=== PATIENT | female | born 1990 | race Caucasian/White ===

== ENCOUNTER → 2018-03-05 | Outpatient (CLI) | payer OTHER ==
[~2018-03-05] MED LIST: CEPH500C3 PO; FLAG500T PO; GLIP5 PO; GLUCTAB PO; LISI-360 PO; ZOFR4TAB3 SL
== END ==
LOC: HPND 08:44
PROVIDERS: ATTEND Obstetrics & Gynecology
DX: E66.09 Other obesity due to excess calories (principal); Z68.31 Body mass index [BMI] 31.0-31.9, adult; Z36.82 Encounter for antenatal screening for nuchal translucency; O24.019 Pre-existing type 1 diabetes mellitus, in pregnancy, unspecified trimester
CPT/HCPCS: 36415; 76813